=== PATIENT | female | born 1995 | race Caucasian/White ===

== ENCOUNTER 2018-05-23 17:21 | Emergency (ER) | payer OTHER ==
[~2018-05-23] VITALS: Ht 162.6 cm; Wt 119.0 kg
[2018-05-23 17:26] VITALS: BP 142/82
--- NOTE | 2018-05-23 17:31 | NUR ---
PT TAKEN BY WHEELCHAIR TO ER BED 06
--- NOTE | 2018-05-23 17:34 | NUR ---
C/O RT FOOT PAIN AFTER STEPPING ON A NAIL; PUNCTURE WOUND ON BOTTOM OF RT FOOT, NO ACTIVE BLEEDING NOTED HX; DENIES RX; DENIES
--- NOTE | 2018-05-23 17:49 | NUR ---
Patient being evaluated by physician at bedside.
[2018-05-23] MEDS ORDERED: IBUPROFEN 400 MG TAB PO ONE (17:50)
[2018-05-23 18:14] VITALS: BP 139/79
== END 2018-05-23 18:14 | disposition home or self-care (01) ==
LOC: MED 17:21
DX: S91.331A Puncture wound without foreign body, right foot, initial encounter (principal); W22.8XXA Striking against or struck by other objects, initial encounter; Y93.89 Activity, other specified; Y92.89 Other specified places as the place of occurrence of the external cause; Y99.8 Other external cause status
CPT/HCPCS: 90471; 90715; 99283